=== PATIENT | female | born 1960 ===

== ENCOUNTER 2017-06-06 08:25 | Day surgery (SDC) | payer OTHER ==
[2017-05-30 10:52] VITALS: BMI 28.5
[2017-06-06 09:19] VITALS: RESP 18
[2017-06-06] MEDS ORDERED: Propofol 10 mg/ml Inj (20 ML) ONE (10:23)
[2017-06-06] MEDS ORDERED: Rocuronium 10 mg/ml (5 ml) ONE ×2 (10:23→13:11)
[2017-06-06] MEDS ORDERED: Midazolam 2 MG/2 ML VIAL ONE (10:23)
[2017-06-06] MEDS ORDERED: Succinylcholine 200 mg/10 ml Inj IV ONE (10:24)
[2017-06-06] MEDS ORDERED: Bupivacaine 0.5% Inj(30mL) ONE (11:02)
[2017-06-06] MEDS ORDERED: Lactated Ringer's 1,000 ML IV ONE ×2 (11:10→11:15)
[2017-06-06] MEDS ORDERED: Dexamethasone 4 mg/1 ml ONE ×2 (11:44)
[2017-06-06] MEDS ORDERED: DiphenhydrAMINE 50 mg/ml Inj ONE ×2 (12:07→15:04)
[2017-06-06] MEDS ORDERED: Desflurane Inhalation Anesthetic Liq (240 ml) ONE (12:59)
[2017-06-06] MEDS ORDERED: Neostigmine Methylsulfate 3mg/3ml Syringe IV ONE (13:33)
[2017-06-06] MEDS ORDERED: Neostigmine Methylsulfate 2 MG/2 ML ML IV ONE (13:34)
[2017-06-06] MEDS ORDERED: DiphenhydrAMINE 50 mg/ml Inj IVP STA (15:00)
[2017-06-06 17:55] VITALS: TEMP 97.8
[2017-06-06 18:47] VITALS: BP 116/74; PULSE 83; O2SAT 99
--- NOTE | 2017-06-13 14:23 | PCM.OP ---
Operative Report - Operative Report Date of Surgery/Procedure: 06/18/17 Time of Surgery/Procedure: 11:00 Surgeon: Dr. Mario Elliott Pipe Stem Repairer: LULI Patrick Anesthesia/Sedation: General Anesthesia Pre-Operative Diagnosis: Pelvic pain, bilateral hydrosalpinx Post-Operative Diagnosis: Pelvic pain, bilateral hydrosalpinx Indication for Surgery: Pelvic pain, bilateral hydrosalpinx Operative Findings: Extensive abdominal adhesions and a bowel was adherent in the anterior abdominal wall. A bowel was adherent to the left pelvic side wall and into the pelvis, there were no hydrosalpinx noted. Ovaries were normal. Procedure/Operation Description: After informed consent was obtained, the patient was taken to the operating room where she was given general anesthesia. The patient was prepped and draped in the usual sterile fashion. An incision was entered in the vaginal area where a sponge stick was inserted into the vagina as a means to manipulate the cervix and vagina. A swanson catheter was inserted into the urinary bladder to monitor the patients urinary output. Attention was sent to [facility] and a marking was infused. A 5 mm incision was made. The abdomen was intent to outport and various needles were introduced into the abdominal cavity. The abdomen was insufflated 15 mm of mercury. A 5 mm port was then introduced into the abdominal cavity and placement was confirmed with laparoscope. The abdomen was then surveyed with findings noted above. There was an extensive anterior abdominal wall adhesion, bowel was adherent to the umbilical region. There were extensive bowel adhesions. Bowel adherent to the anterior aspect of the bladder. Patient had a previous hysterectomy. The initial evaluation was very difficult to survey due to adhesions. Attention was then made to approximately 3 cm superior to the right anterior iliac crest. Marcaine was infused and an 8 mm incision was made and an 8 mm robotic port was introduced into the abdominal cavity. The camera was then inserted into the port and we created a window and were able to visualize the left side and a similar procedure was performed on the left. Using the laparoscopic gloria, the adhesions were gently meticulously dissected away from the anterior abdominal wall. As we approached the bowel, care was taken to avoid any use of electrocaudery. The bowel was mobilized using both sharp and dice blunt dissection. The bowel was mobilized downward and then swept upward. Once the bowel was pulled from the umbilicus, an 8 mm incision was made approximately 2 cm superior to the umbilicus, marcaine was infused and an 8mm incision was made and a robotic port was introduced into the abdominal cavity. The patient was then placed in a straight steep trendelenberg. The table was lowered. The robot was brought along the patient's side and docked without complication. The instruments we used for the procedure were a PK dissector and scissor and then proceed to brace scrub and went to surgical console. Attention was then turned to the bowel adherent to the anterior aspect of the bladder. It was gently dissected away from the anterior aspect of the bladder down towards the pelvic base. Attention was turned to the left side wall where there was extensive bowel adhesions and bowel was meticulously dissected away off the pelvic side wall. The area was identified below and there was no fallopian tube or hydrosalpinx identified on the left. Attention was turned to the right, which is similar in fashion with the bowel the Colon was mobilized medially, and no tube or hydrosalpinx was identified. Ovary had a normal appearance. The abdomen was in copiously irrigated. The irrigant was suctioned with a suction device. The omentum and surgical site were reexamined, hemostasis was noted. All instruments were then removed from the abdomen. The skin was closed with 3.0 vicryl and dermabond. The patient was awakened from general anesthesia and taken to the recovery room. She was awake in a stable condition. All instrument counts were correct x 3 Estimated Blood Loss: The estimated blood loss was minimal. Patient put out approximately 100 cc of clear urine. Patient received 1300 cc of defibrotide intra operatively. Complications: None Discharge & Condition: Patient tolerated procedure well and was discharged home
== END 2017-06-06 18:49 | disposition home or self-care (01) ==
LOC: H.OPSURG 08:25
PROVIDERS: ATTEND Obstetrics & Gynecology Gynecology
DX: N73.6 Female pelvic peritoneal adhesions (postinfective) (principal); N70.11 Chronic salpingitis; Z88.6 Allergy status to analgesic agent; Z90.710 Acquired absence of both cervix and uterus

== ENCOUNTER 2018-09-15 19:39 | Emergency (ER) | payer BC, OTHER ==
[2018-09-15 19:40] VITALS: BMI 29.2
[2018-09-15 19:59] VITALS: TEMP 98.4
[2018-09-15] MEDS ORDERED: Iohexol 240 (50 ml) PO ONE (20:55)
[2018-09-15] MEDS ORDERED: Iohexol 240 (50 ml) ONE (21:08)
[2018-09-15 21:15] LABS: MEAN CELL VOLUME 90.3 fl (81.0-99.0); MEAN CORPUSCULAR HEMOGLOBIN 30.2 pg (27.0-31.0); MEAN CORPUSCULAR HGB CONC 33.5 g/dL (33.0-37.0); RBC 4.63 Mil/uL (3.80-5.20); RED CELL DISTRIBUTION WIDTH 13.5 % (11.5-14.5); WHITE BLOOD COUNT 7.4 K/uL (4.8-10.8)
[2018-09-15 21:24] LABS: ALB/GLOB RATIO 1.3 (1.0-2.1); ALBUMIN 4.3 g/dL (3.5-5.0); ALT/SGPT 89 U/L (9-52); AST/SGOT 41 U/L (14-36); BILIRUBIN,DIRECT 0.2 mg/ml (0.0-0.4); BLOOD UREA NITROGEN 15 mg/dl (7-17); CALCIUM 9.6 mg/dL (8.4-10.2); GFR NON-AFRICAN AMERICAN > 60
[2018-09-15 22:47] LABS: SQUAMOUS EPITHIAL 2 /hpf (0-5); URINE BACTERIA RARE (<OCC); URINE BILIRUBIN NEGATIVE (NEGATIVE); URINE BLOOD NEGATIVE (NEGATIVE); URINE CLARITY CLEAR (Clear); URINE COLOR STRAW (YELLOW); URINE GLUCOSE (UA) NEG (Normal); URINE LEUKOCYTE ESTERASE TRACE Leu/uL (Negative); URINE PROTEIN NEGATIVE (NEGATIVE); URINE UROBILINOGEN 0.2-1.0 mg/dL (0.2-1.0)
[2018-09-15] MEDS ORDERED: Sodium Chloride 0.9% 50 ML IV ONE (23:04)
[2018-09-15] MEDS ORDERED: Iohexol 300 100 ML IJ ONE (23:04)
[2018-09-16 01:05] VITALS: BP 136/87; PULSE 73; RESP 20; O2SAT 97
--- NOTE | 2018-09-16 01:24 | ED PDOC ---
HPI: Abdomen Time Seen by Provider: 09/15/18 20:33 Chief Complaint (Nursing): Abdominal Pain Chief Complaint (Provider): Abdominal Pain History Per: Patient History/Exam Limitations: no limitations Onset/Duration Of Symptoms: Days Current Symptoms Are (Timing): Still Present Associated Symptoms: Nausea, Vomiting, Diarrhea. denies: Fever Additional Complaint(s): 57 year old female with PMHx of hypothyroidism presents to the ER for an evaluation of right side abdominal pain. She reports the pain is worsening since Friday. Patient states she has a mixture of nausea, vomiting and diarrhea. Whenever she eats a heavy meal, she reports she either has vomiting or diarrhea. Patient states she sees Dr. Goodman but was told the doctor is not practicing anymore prompting a visit to the ER for an evaluation. She denies fever or any urinary symptoms. PMD: Non H Provider Past Medical History Reviewed: Historical Data, Nursing Documentation, Vital Signs Vital Signs: Last Vital Signs Temp 98.4 F 09/15/18 19:56 Pulse 73 09/16/18 01:04 Resp 20 09/16/18 01:04 BP 136/87 09/16/18 01:04 Pulse Ox 97 09/16/18 01:04 - Medical History PMH: Depression, Diabetes, Hypothyroidism (BLANKA) Denies: Chronic Kidney Disease - Surgical History Surgical History: Endoscopy - Family History Family History: States: Unknown Family Hx, CAD - Social History Current smoker - smoking cessation education provided: No Alcohol: None Drugs: Denies - Immunization History Hx Tetanus Toxoid Vaccination: Yes Hx Influenza Vaccination: Yes (Up to date) Hx Pneumococcal Vaccination: Yes (Up to date) - Home Medications Home Medications: Ambulatory Orders Medication Instructions Recorded Levothyroxine [Synthroid] 88 mcg PO DAILY 08/13/18 Dicyclomine [Bentyl] 20 mg PO BID #30 tab 09/16/18 - Allergies Allergies/Adverse Reactions: Allergies Allergy/AdvReac Type Severity Reaction Status Date / Time hydromorphone HCl Allergy Intermediate RASH Verified 09/15/18 19:56 [From Dilaudid] meperidine HCl [From Demerol] Allergy Intermediate NAUSEA Verified 09/15/18 19:56 morphine Allergy Intermediate RASH Verified 09/15/18 19:56 Review of Systems ROS Statement: Except As Marked, All Systems Reviewed And Found Negative Constitutional: Negative for: Fever Gastrointestinal: Positive for: Nausea, Vomiting, Abdominal Pain, Diarrhea Genitourinary Female: Negative for: Dysuria, Frequency, Incontinence, Hematuria, Vaginal Discharge, Vaginal Bleeding Physical Exam - Reviewed Nursing Documentation Reviewed: Yes Vital Signs Reviewed: Yes - Physical Exam Appears: Positive for: Non-toxic, No Acute Distress Head Exam: Positive for: ATRAUMATIC, NORMAL INSPECTION, NORMOCEPHALIC Skin: Positive for: Normal Color, Warm, Dry Eye Exam: Positive for: EOMI, Normal appearance, PERRL ENT: Positive for: Normal ENT Inspection Neck: Positive for: Normal, Painless ROM, Supple. Negative for: Decreased ROM Cardiovascular/Chest: Positive for: Regular Rate, Rhythm. Negative for: Murmur Respiratory: Positive for: Normal Breath Sounds. Negative for: Decreased Breath Sounds, Wheezing, Respiratory Distress Gastrointestinal/Abdominal: Positive for: Tenderness (flank ). Negative for: Guarding, Rebound, Other (murphys point tenderness) Back: Positive for: Normal Inspection. Negative for: L CVA Tenderness, R CVA Tenderness Extremity: Positive for: Normal ROM. Negative for: Tenderness, Pedal Edema, Deformity Neurologic/Psych: Positive for: Alert, Oriented (x3). Negative for: Motor/Sensory Deficits - Laboratory Results Result Diagrams: 09/15/18 21:07 09/15/18 21:07 - ECG O2 Sat by Pulse Oximetry: 97 (RA) Pulse Ox Interpretation: Normal Medical Decision Making Medical Decision Making: Time: 2054 Assessment: 57 year old well-appearing female with abdominal symptoms Differential Diagnosis includes but not limited to: Gastroenteritis vs Cholelithiasis vs Cholecystitis vs Colitis Initial Plan: --Abdomen & Pelvis PO & IV Contrast [CT] --BMP --Liver Profile --CBC Stat --Bentyl 20mg --Omnipaque 240 (50ml) --Zofran 8mg --Urinalysis --Reevaluation 100 --CT shows hepatic steatosis, no other acute process --Advised patient to followup with GI for colonoscopy and endoscopy --Very well appearing, tolerating PO upon discharge Scribe Attestation: Documented by Anurag Hammond acting as a scribe for Aroldo Mcghee MD Provider Scribe Attestation: All medical record entries made by the Scribe were at my direction and personall y dictated by me. I have reviewed the chart and agree that the record accurately reflects my personal performance of the history, physical exam, medical decision making, and the department course for this patient. I have also personally directed, reviewed, and agree with the discharge instructions and disposition. Disposition - Clinical Impression Clinical Impression: Hepatic steatosis - Disposition Referrals: Jonathon Prado MD, PhD [Staff Provider] - Disposition: Routine/Home Disposition Time: 01:00 Condition: STABLE Prescriptions: Dicyclomine [Bentyl] 20 mg PO BID #30 tab Instructions: Nonalcoholic Fatty Liver Disease (DC) Forms: [employer] ([place])
--- NOTE | 2018-09-16 09:20 | CT ---
Date of service: 09/15/2018 PROCEDURE: CT Abdomen and Pelvis with contrast HISTORY: hx of hepatic steatosis, RUQ pain, n/v/d COMPARISON: None. TECHNIQUE: Contrast dose: 95 mL of Omnipaque 300 Radiation dose: Total exam DLP = 460.21 mGy-cm. This CT exam was performed using one or more of the following dose reduction techniques: Automated exposure control, adjustment of the mA and/or kV according to patient size, and/or use of iterative reconstruction technique. FINDINGS: LOWER THORAX: Unremarkable. LIVER: Hepatic steatosis. Hepatomegaly. No gross lesion or ductal dilatation. GALLBLADDER AND BILE DUCTS: Unremarkable. PANCREAS: Unremarkable. No gross lesion or ductal dilatation. SPLEEN: Unremarkable. ADRENALS: Unremarkable. No mass. KIDNEYS AND URETERS: Unremarkable. No hydronephrosis. No solid mass. VASCULATURE: Unremarkable. No aortic aneurysm. BOWEL: Unremarkable. No obstruction. No gross mural thickening. APPENDIX: Normal appendix. PERITONEUM: Unremarkable. No free fluid. No free air. LYMPH NODES: Unremarkable. No enlarged lymph nodes. BLADDER: Unremarkable. REPRODUCTIVE: Bilateral adnexal hypodensities-inferred bilateral ovarian follicular physiologic changes. BONES: No acute fracture. OTHER FINDINGS: None. IMPRESSION: Hepatomegaly with hepatic steatosis Bilateral adnexal hypodensities-inferred bilateral ovarian follicular physiologic changes. No bowel obstruction or inflammatory bowel type changes noted. Concordant results (preliminary interpretation) provided by [employer].
== END 2018-09-16 01:14 | disposition home or self-care (01) ==
LOC: H.ER 19:39
DX: K76.0 Fatty (change of) liver, not elsewhere classified (principal); E03.9 Hypothyroidism, unspecified; E11.9 Type 2 diabetes mellitus without complications
CPT/HCPCS: 74177; 80048; 80076; 81003; 85027; 99284; Q9966; Q9967